=== PATIENT | female | born 1985 | race Caucasian/White ===

== ENCOUNTER → 2016-06-02 | Outpatient (CLI) | payer SELFPAY ==
--- NOTE | 2016-06-02 16:39 | US ---
EXAM DESCRIPTION: Venous,Lower Extremity RT CLINICAL HISTORY: Acute embolism and thrombosis of unspecified deep veins of lower COMPARISON: None Available. TECHNIQUE: Right lower extremity venous duplex. De Leon scale, color Doppler, and spectral pulse Doppler evaluation was performed FINDINGS: There is no DVT identified. No filling defects noted. There is normal color flow observed with good flow augmentation. All deep veins compress normally. IMPRESSION: Negative for DVT Electronically signed by: Shay Roblero MD 06/02/2016 4:38 PM CDT
== END | disposition home or self-care (01) ==
LOC: US 10:37
PROVIDERS: ATTEND Obstetrics & Gynecology
DX: I82.409 Acute embolism and thrombosis of unspecified deep veins of unspecified lower extremity (principal)